=== PATIENT | male | born 1990 | race Caucasian/White ===

== ENCOUNTER 2018-09-14 21:48 | Emergency (ER) | payer SELFPAY ==
[~2018-09-14] VITALS: Ht 170.2 cm; Wt 65.0 kg
[2018-09-14] MEDS ORDERED: ONDANSETRON 4MG ODT PO ONE (22:45)
[2018-09-14] MEDS ORDERED: MORPHINE SULFATE 10 MG/ML CPJ IM ONE (22:45)
[2018-09-15] MEDS ORDERED: SODIUM CHLORIDE 0.9% 1,000 ML IV ONE (00:13)
[2018-09-15 10:48] VITALS: BP 104/66
== END 2018-09-15 10:50 | disposition home or self-care (01) ==
LOC: ER 21:48
DX: R51 Headache (principal); Z59.0 Homelessness; F17.200 Nicotine dependence, unspecified, uncomplicated; F12.10 Cannabis abuse, uncomplicated; J45.909 Unspecified asthma, uncomplicated
CPT/HCPCS: 70450; 96372; 99284; J2270; J7030; Q0162; Z7610